=== PATIENT | male | born 1945 | race Caucasian/White ===

== ENCOUNTER 2016-10-25 10:21 | Emergency (ER) | payer MEDICARE ==
[2016-10-25 13:23] LABS: BASOPHILS 0.4 % (0.0-2.0); EOSINOPHILS 0.9 % (0-7); HEMATOCRIT 40.1 % (42.0-54.0); IMMATURE GRANULOCYTES 0.1 % (0-5); LYMPHOCYTES 17.9 % (15-50); MCH 31.6 pg (26.0-34.0); MCHC 32.4 g/dL (31.0-37.0); MCV 97.3 fL (80.0-100.0); MEAN PLATELET VOLUME 10.3 fL (7.4-10.4); MONOCYTES 7.9 % (2-11); NEUTROPHILS 72.8 % (40-80); PLATELET COUNT 194 10x3/uL (130-400); RBC 4.12 10x6/uL (4.20-6.10); RDW 15.3 % (11.5-14.5); WBC 8.4 10x3/uL (4.8-10.8)
[2016-10-25 14:01] LABS: ALBUMIN 3.4 g/dL (3.4-5.0); ANION GAP 18.4 mmol/L (8-16); BILIRUBIN - TOTAL 0.7 mg/dL (0.2-1.3); CALCIUM 8.7 mg/dL (8.5-10.1); CARBON DIOXIDE 22.8 mmol/L (21.0-32.0); CREATININE - SERUM 1.3 mg/dL (0.6-1.3); POTASSIUM - SERUM 4.2 mmol/L (3.5-5.1); PROTEIN - SERUM 7.3 g/dL (6.4-8.2)
[2016-10-25 14:07] LABS: MAGNESIUM - SERUM 1.9 mg/dL (1.8-2.4); TROPONIN-I 0.018 ng/mL (0.000-0.060)
== END 2016-10-25 14:50 | disposition home or self-care (01) ==
LOC: D.ER 10:21
PROVIDERS: Emergency Medicine
DX: I48.91 Unspecified atrial fibrillation (principal); I50.9 Heart failure, unspecified; F17.200 Nicotine dependence, unspecified, uncomplicated

== ENCOUNTER → 2016-11-18 16:54 | Outpatient (CLI) | payer MEDICARE | END | disposition home or self-care (01) | LOC: D.MAMMO 10-27 08:30 | DX: N64.4 Mastodynia (principal) ==